=== PATIENT | female | born 1985 | race Caucasian/White ===

== ENCOUNTER 2017-04-12 18:21 | Emergency (ER) | payer MEDICAID, OTHER ==
[2017-04-12] MEDS ORDERED: Sodium Chloride 0.9% 1,000 ML IV STA ×2 (19:23→23:11)
--- NOTE | 2017-04-12 19:51 | ED PDOC ---
HPI: Back Time Seen by Provider: 04/12/17 18:56 Chief Complaint (Nursing): Flu-like Symptoms Chief Complaint (Provider): Back pain History Per: Patient History/Exam Limitations: no limitations Onset/Duration Of Symptoms: Days (x1) Current Symptoms Are (Timing): Still Present Additional Complaint(s): Laila Lobo is a 32 year old female, with a past medical history of asthma and bronchitis, who presents to the emergency department complaining of bilateral back pain and chills associated with several episodes of non bloody vomit, and difficulty urinating with cloudy color and foul smell noted onset for 1 day. Patient is 6 weeks and describes the pain as worst than usual. Patient states she has had cysts on the left kidney previously. She reports she had similar symptoms in August 2012, where she was admitted while and diagnosed with UTI. Patient denies diarrhea, and cough. PMD: None provided. Past Medical History Reviewed: Historical Data, Nursing Documentation, Vital Signs Vital Signs: Last Vital Signs Temp 99.9 F H 04/12/17 18:48 Pulse 92 H 04/12/17 18:48 Resp 20 04/12/17 18:48 BP 117/68 04/12/17 18:48 Pulse Ox 100 04/12/17 18:48 - Medical History PMH: Asthma, Bronchitis Denies: Chronic Kidney Disease - Surgical History Surgical History: - Family History Family History: States: Unknown Family Hx - Home Medications Home Medications: Ambulatory Orders Medication Instructions Recorded Amoxicillin/Clavulanate [Augmentin 1 tab PO BID #14 tab 08/25/16 875 MG-125 MG] Multivit/Folic Acid/I 1 tab PO DAILY #100 tab 08/25/16 [] Cefpodoxime [Vantin] 200 mg PO BID #20 tab 04/12/17 Ondansetron ODT [Zofran ODT] 4 mg PO Q8 PRN #12 odt 04/12/17 - Allergies Allergies/Adverse Reactions: Allergies Allergy/AdvReac Type Severity Reaction Status Date / Time No Known Allergies Allergy Verified 08/22/16 23:17 Review of Systems ROS Statement: Except As Marked, All Systems Reviewed And Found Negative Constitutional: Positive for: Fever, Chills Respiratory: Negative for: Cough Gastrointestinal: Positive for: Vomiting (several episodes of non bloody). Negative for: Diarrhea Genitourinary Female: Positive for: Incontinence (with cloudy and foul smell urine) Musculoskeletal: Positive for: Back Pain (bilateral) Physical Exam - Reviewed Nursing Documentation Reviewed: Yes Vital Signs Reviewed: Yes - Physical Exam Appears: Positive for: Non-toxic, Uncomfortable Head Exam: Positive for: ATRAUMATIC, NORMAL INSPECTION, NORMOCEPHALIC Skin: Positive for: Normal Color, Warm, Dry. Negative for: Rash Eye Exam: Positive for: EOMI, Normal appearance, PERRL ENT: Positive for: Normal ENT Inspection Neck: Positive for: Normal, Painless ROM, Supple Cardiovascular/Chest: Positive for: Regular Rate, Rhythm. Negative for: Murmur Respiratory: Positive for: Normal Breath Sounds. Negative for: Respiratory Distress Gastrointestinal/Abdominal: Positive for: Normal Exam, Bowel Sounds, Soft. Negative for: Tenderness Back: Positive for: Normal Inspection Extremity: Positive for: Normal ROM. Negative for: Pedal Edema, Deformity Neurologic/Psych: Positive for: Alert, Oriented (x3). Negative for: Motor/ Sensory Deficits - Laboratory Results Result Diagrams: 04/12/17 20:10 04/12/17 20:10 - ECG O2 Sat by Pulse Oximetry: 100 (RA) Pulse Ox Interpretation: Normal - Progress Re-evaluation Time: 23:39 Condition: Re-examined, Improved Medical Decision Making Medical Decision Making: Initial Impression: back pain w/ dysuria. differential includes: UTI, complication. rule out sepsis Initial Plan: --VBG Shock panel --Basic Metabolic Panel --Urine --Urine dipstick --CBC w/ differential --NS IV 1000 ml @ 1,000mls/hr --Tylenol 650 mg PO --Zofran Inj 4 mg IV --Blood culture --Urine culture --Abdomen complete [US] --OB Transvaginal [US] --reevaluation 23:19 Renal ultrasound reviewed. Findings noted as follows: Right kidney: Unremarkable in size measuring 13.3 x 4.7 x 5.4 cm. Innumerable anechoic foci are identified within the right kidney. The largest is within the lower pole measuring 4.1 cm in greatest dimension. A single thickened septation is detected, which is avascular. No stones. No solid mass. No hydronephrosis. Left kidney: Unremarkable in size measuring 11.7 x 4.8 x 6.3 cm. Multiple anechoic foci are identified within the left kidney. The largest is located within the lower pole measuring 2.4 cm in greatest dimension. No stones. No solid mass. No hydronephrosis. Limited evaluation of the bladder was performed. Despite prolonged interrogation, the bilateral ureteral jets were not visualized. IMPRESSION: Multiple simple cysts within the bilateral kidneys. A single slightly complex cyst is identified within the lower pole of the right kidney, with a thickened avascular septation. This finding within the right kidney was described on previous examination performed 08/23/2016. When patient is clinically able, non-emergent contrast-enhanced cross- sectional imaging is recommended (preferably with MRI) for further evaluation. 23:26 Obstetrics ultrasound reviewed. Findings noted as follows: A single intrauterine gestation is identified. The crown-rump length measures 8 mm, corresponding to an approximate gestational age of 6 weeks and 5 days. The mean gestational sac size measures 19 mm, corresponding to an approximate gestational age of 6 weeks and 3 days. A well-formed yolk sac is detected. cardiac activity is identified 139 beats per minute. The cervix measures 4 cm in length and is closed. The right ovary is unremarkable in echogenicity and size measuring 2.9 x 2.6 x 4.1 cm. Dopplerable flow is detected. The left ovary is unremarkable in echogenicity and size measuring 2.9 x 2.3 x 2.9 cm. Dopplerable flow is detected. IMPRESSION: Single intrauterine gestation with an approximate gestational age of 6 weeks and 5 days. cardiac activity is identified. Scribe Attestation: Documented by Presley Duarte and Gabriela Miguel, acting as scribes for Loulou Roldan MD. Provider Scribe Attestation: All medical record entries made by the Scribe were at my direction and personally dictated by me. I have reviewed the chart and agree that the record accurately reflects my personal performance of the history, physical exam, medical decision making, and the department course for this patient. I have also personally directed, reviewed, and agree with the discharge instructions and disposition. Disposition - Clinical Impression Clinical Impression: Pyelonephritis, - Patient ED Disposition Is Patient to be Admitted: No Doctor Will See Patient In The: Office Counseled Patient/Family Regarding: Studies Performed, Diagnosis, Need For Followup - Disposition Referrals: [facility] [Outside] Disposition: Routine/Home Disposition Time: 23:33 Condition: GOOD Additional Instructions: Return for worsening. Follow up with your PCP in 2-3 days. Take your medications as instructed. Prescriptions: Cefpodoxime [Vantin] 200 mg PO BID #20 tab Ondansetron ODT [Zofran ODT] 4 mg PO Q8 PRN #12 odt PRN Reason: Nausea/Vomiting Instructions: Urinary Tract Infection in (ED)
[2017-04-12 20:38] LABS: VENOUS BLOOD GAS BASE EXCESS -0.3 mmol/L (0.0-2.0); VENOUS BLOOD GAS PCO2 32 mmHg (40-60); VENOUS BLOOD PH 7.46 (7.32-7.43)
[2017-04-12 20:50] LABS: BASO % 0.2 % (0.0-2.0); BLOOD UREA NITROGEN 8 mg/dl (7-17); CALCIUM 9.7 mg/dL (8.4-10.2); CARBON DIOXIDE 21 mmol/L (22-30); CHLORIDE 101 mmol/L (98-107); EOS % 0.1 % (0.0-4.0); GFR AFRICAN-AMERICAN > 60; GLUCOSE,RANDOM 106 mg/dL (65-105); HEMATOCRIT 34.8 % (34.0-47.0); LYMPH # 1.2 K/uL (1.0-4.3); LYMPH % 11.4 % (20.0-40.0); MEAN CELL VOLUME 85.5 fl (81.0-99.0); MEAN CORPUSCULAR HEMOGLOBIN 29.3 pg (27.0-31.0); MEAN CORPUSCULAR HGB CONC 34.2 g/dL (33.0-37.0); MEAN PLATELET VOLUME 8.9 fl (7.2-11.7); MONO # 0.6 K/uL (0.0-0.8); MONO % 5.5 % (0.0-10.0); NEUT # 9.1 K/uL (1.8-7.0); NEUT % 82.8 % (50.0-75.0); POTASSIUM 3.4 MMOL/L (3.6-5.0); RED CELL DISTRIBUTION WIDTH 12.3 % (11.5-14.5); SODIUM 135 mmol/l (132-148)
[2017-04-12] MEDS ORDERED: Albuterol-Ipratrop 3 mg / 0.5 (3 ml) UD INH STA (22:16)
[2017-04-12] MEDS ORDERED: cefTRIAXone (Rocephin) 1 gm Inj ONE (22:45)
[2017-04-12] MEDS ORDERED: Albuterol-Ipratrop 3 mg / 0.5 (3 ml) UD ONE (22:46)
[2017-04-12 22:58] VITALS: RESP 18; TEMP 98
--- NOTE | 2017-04-12 23:19 | US ---
EXAM: US Retroperitoneal Limited, Renal CLINICAL HISTORY: 32 years old, female; Pain; Other: Back pain; ; Additional info: Back pain HX of uti renal us TECHNIQUE: Real-time ultrasound of the retroperitoneum (limited) with image documentation. COMPARISON: No relevant prior images available. Reference is made to a report dated 08/23/2016. FINDINGS: Right kidney: Unremarkable in size measuring 13.3 x 4.7 x 5.4 cm. Innumerable anechoic foci are identified within the right kidney. The largest is within the lower pole measuring 4.1 cm in greatest dimension. A single thickened septation is detected, which is avascular. No stones. No solid mass. No hydronephrosis. Left kidney: Unremarkable in size measuring 11.7 x 4.8 x 6.3 cm. Multiple anechoic foci are identified within the left kidney. The largest is located within the lower pole measuring 2.4 cm in greatest dimension. No stones. No solid mass. No hydronephrosis. Limited evaluation of the bladder was performed. Despite prolonged interrogation, the bilateral ureteral jets were not visualized. IMPRESSION: Multiple simple cysts within the bilateral kidneys. A single slightly complex cyst is identified within the lower pole of the right kidney, with a thickened avascular septation. This finding within the right kidney was described on previous examination performed 08/23/2016. When patient is clinically able, non-emergent contrast-enhanced cross-sectional imaging is recommended (preferably with MRI) for further evaluation.
--- NOTE | 2017-04-12 23:26 | US ---
EXAM: US Uterus, Limited CLINICAL HISTORY: 32 years old, female; Pain; Other: Back pain; Gestational age or lmp: 02/25/17; TECHNIQUE: Real-time ultrasound of the maternal uterus (limited) with image documentation. COMPARISON: No relevant prior studies available. FINDINGS: A single intrauterine gestation is identified. The crown-rump length measures 8 mm, corresponding to an approximate gestational age of 6 weeks and 5 days. The mean gestational sac size measures 19 mm, corresponding to an approximate gestational age of 6 weeks and 3 days. A well-formed yolk sac is detected. cardiac activity is identified 139 beats per minute. The cervix measures 4 cm in length and is closed. The right ovary is unremarkable in echogenicity and size measuring 2.9 x 2.6 x 4.1 cm. Dopplerable flow is detected. The left ovary is unremarkable in echogenicity and size measuring 2.9 x 2.3 x 2.9 cm. Dopplerable flow is detected. IMPRESSION: Single intrauterine gestation with an approximate gestational age of 6 weeks and 5 days. cardiac activity is identified.
[2017-04-12 23:56] VITALS: BP 111/61; PULSE 71; O2SAT 99
== END 2017-04-12 23:55 | disposition home or self-care (01) ==
LOC: H.ER 18:21
DX: N28.1 Cyst of kidney, acquired (principal); R30.0 Dysuria; O26.831 Pregnancy related renal disease, first trimester; Z3A.01 Less than 8 weeks gestation of pregnancy; Z87.440 Personal history of urinary (tract) infections; J45.909 Unspecified asthma, uncomplicated; O99.511 Diseases of the respiratory system complicating pregnancy, first trimester; O26.891 Other specified pregnancy related conditions, first trimester
CPT/HCPCS: 76770; 76815; 80048; 81025; 82803; 85025; 87040; 87086; 87181; 87804; 94640; 96361; 96365; 96375; 99285; J0696; J2405; J7040

== ENCOUNTER 2017-09-06 19:14 | Emergency (ER) | payer MEDICAID, OTHER ==
[2017-09-06 21:09] VITALS: BMI 32.1
[2017-09-06 21:19] LABS: SQUAMOUS EPITHIAL < 1 /hpf (0-5); URINE BILIRUBIN NEGATIVE (NEGATIVE); URINE BLOOD NEGATIVE (NEGATIVE); URINE CLARITY CLEAR (Clear); URINE COLOR STRAW (YELLOW); URINE GLUCOSE (UA) NEG (Normal); URINE LEUKOCYTE ESTERASE NEG Leu/uL (Negative); URINE NITRATE NEGATIVE (NEGATIVE); URINE PROTEIN NEGATIVE (NEGATIVE); URINE UROBILINOGEN 0.2-1.0 mg/dL (0.2-1.0)
[2017-09-07 02:31] VITALS: BP 116/65; PULSE 90
--- NOTE | 2017-09-07 10:27 | OBHP ---
Datetime: 09/06/2017 21:00 IP Adm Impression: , intrauterine IP Admit Plan: Discharge home Admit Comment, IP Provider: 32 yo at 27+4w gestational age presented to [facility] with complaint of abdominal pressure/tightness that comes and goes; started at 3 pm today. Reports good moveme nt, no vaginal bleeding, denies loss of fluid, thinks she has irregular contractions q20-30 min. Last sexual activity was last night. care: Nicholas Bennett. Recently failed 1hr GTT at glucose of 157. Other labs unremarkable. N ext visit tomorrow, 09/07. Ob hx: 2 c-sections (primary due to failure to dilate) at 42weeks, and repeat . 3 SAB, 1 TOP. Med hx: asthma,polycystic kidney disease Surg hx: L ankle metal plate, Fam hx: polycystic kidney disease Social hx: denies x3 ROS: denies headache, dizziness, chest pain, abdominal pain, nausea, vomiting, diarrhea, constipat ion; has some burning/discomfort with urination PE: see notes SVE: closed, long, thick toco: no ctx A: 32 yo at 27+4w gestational age, no signs of early labor. Initial plan: Monitor strip, UA. UA -neg for leuk esterase, neg nitrates. Plan: Pt to be discharged home; encouraged to follow up with scheduled appt tomorrow. Discussed w/ Dr. Nicole. [email or web address] Extremities - PN: Normal Abdomen - PN: Normal Back - PN: Normal Breast - PN: Not Done Lungs - PN: Normal Heart - PN: Normal Thyroid - PN: Not Done Neurologic - PN: Normal HEENT - PN: Normal General - PN: Normal FHR - Baseline A Provider: 150 Comments, ACOG Physical Exam: SVE: closed, long, thick EGA AdmitDate IP: 27.4 Vital Signs Provider: Reviewed IP Chief Complaint: Maternal discomfort Dilatation, Provider: 0 Effacement, Provider: 0 Station, Provider: -4 Genitourinary Exam: Normal DTRs - PN: Not Done
== END 2017-09-06 21:55 | disposition home or self-care (01) ==
LOC: H.EROB2 19:14
DX: O47.02 False labor before 37 completed weeks of gestation, second trimester (principal); Z3A.27 27 weeks gestation of pregnancy; Z87.59 Personal history of other complications of pregnancy, childbirth and the puerperium; O26.92 Pregnancy related conditions, unspecified, second trimester; N28.9 Disorder of kidney and ureter, unspecified; J45.909 Unspecified asthma, uncomplicated